=== PATIENT | female | born 1975 | race Caucasian/White ===

== ENCOUNTER 2024-10-16 08:30 | Day surgery (SDC) | payer BC ==
[2024-10-16] VITALS (10 sets, daily range): BP systolic 98–123; BP diastolic 61–78; PULSE 70–104; RESP 16–20; TEMP 97.9–98.2
[~2024-10-16] VITALS: Ht 175.3 cm; Wt 74.8 kg
[~2024-10-16 08:30] MED LIST: 0.9%NACL 1000ML 1,000 ML IV ONE
[2024-10-16] MEDS ORDERED: HYDR12.54 PO (08:59)
[2024-10-16] MEDS ORDERED: LISI10TA24 PO (08:59)
[2024-10-16] MEDS ORDERED: LIDOCAINE HCL 1% 20 ML VIAL ONE (10:56)
[2024-10-16] MEDS ORDERED: proPOFol 10 MG/ML 20ML VIAL IV ONE ×2 (10:56→11:07)
[2024-10-16] MEDS ORDERED: PANT40TA55 PO (12:08)
--- NOTE | 2024-10-16 12:40 | NUR ---
Full and complete discharge instructions given to Patient and Family both verbally and in writing. Explained GI procedure precautions and follow up. All questions answered. PIV removed with catheter tip intact. Home with Family W/C to POV.
== END 2024-10-16 12:30 | disposition home or self-care (01) ==
LOC: ENDO 08:30 → DAH 08:30 → ENDO 12:30
PROVIDERS: ATTEND Internal Medicine Gastroenterology
DX: Z12.11 Encounter for screening for malignant neoplasm of colon (principal); R10.13 Epigastric pain; K29.60 Other gastritis without bleeding; I10 Essential (primary) hypertension; Z79.899 Other long term (current) drug therapy
CPT/HCPCS: 81025; 43239; 45378; J7030; J2704 ×2; A4620; A4215; J3490